=== PATIENT | female | born 1945 | race Caucasian/White ===

== ENCOUNTER 2021-08-12 20:38 | Emergency (ER) | payer MEDICARE, OTHER ==
[~2021-08-12] VITALS: Ht 154.9 cm; Wt 84.4 kg
[2021-08-12] MEDS ORDERED: OMEPRAZOLE20 MG PO (21:46)
[2021-08-12] MEDS ORDERED: METFORMIN HCL500 M1 PO (21:46)
[2021-08-12] MEDS ORDERED: LISINOPRIL10 MG PO (21:46)
[2021-08-12] MEDS ORDERED: SIMVASTATIN5 MG PO (21:46)
[2021-08-12] MEDS ORDERED: DOXYCYCLINE HY100 MG PO (21:53)
== END 2021-08-12 22:04 | disposition home or self-care (01) ==
LOC: ED 20:38
DX: L02.415 Cutaneous abscess of right lower limb (principal); I10 Essential (primary) hypertension; E78.00 Pure hypercholesterolemia, unspecified; Z88.0 Allergy status to penicillin; Z79.899 Other long term (current) drug therapy; Z79.84 Long term (current) use of oral hypoglycemic drugs
CPT/HCPCS: 99283; A9270